=== PATIENT | male | born 1960 | race Caucasian/White ===

== ENCOUNTER 2016-07-02 09:53 | Emergency (ER) | payer MEDICARE, MEDICAID ==
[~2016-07-02 09:53] MED LIST: ADVIL100 MG; LORTAB 5/500 TA1 TAB PO; NO MEDICATIONS; PHENERGAN25 MG PO; TYLENOL325 MG; VICODIN 5/500 T1 TAB PO; no meds
[2016-07-02] MEDS ORDERED: VENTOLIN HFA18 G2 PO (11:27)
== END 2016-07-02 11:46 ==
LOC: EDMED 09:53
DX: K64.4 Residual hemorrhoidal skin tags (principal); K40.90 Unilateral inguinal hernia, without obstruction or gangrene, not specified as recurrent; F17.210 Nicotine dependence, cigarettes, uncomplicated